=== PATIENT | female | born 1950 | race Caucasian/White ===

== ENCOUNTER → 2016-11-17 | Outpatient (CLI) | payer OTHER, MEDICARE ==
[2016-11-17 12:51] LABS: HEMATOCRIT 37.6 % (37.0-47.0); HEMOGLOBIN 12.5 g/dL (12.0-16.0); MEAN CORPUSCULAR HGB CONC 33.2 g/dL (33-37); MEAN PLATELET VOLUME 8.9 FL (7.4-12.2); RDW COEFFICIENT OF VARIATION 13.4 % (11.5-14.5); RED BLOOD COUNT 4.17 10^6/uL (4.20-5.40); WHITE BLOOD COUNT 4.75 10^3/uL (4.8-10.8)
[2016-11-17 13:14] LABS: BILIRUBIN,TOTAL 0.4 mg/dL (0.3-1.2); CALCIUM 9.8 mg/dL (8.7-10.7); LDL CHOLESTEROL,CALCULATED 157.2 mg/dL; POTASSIUM 4.1 meq/L (3.8-5.2); TOTAL PROTEIN 8.8 g/dL (6.1-8.0)
[2016-11-17 14:12] LABS: FREE T4 (FREE THYROXINE) 0.81 ng/dL (0.93-1.71)
== END ==
LOC: MOB LAB 11:38
PROVIDERS: ATTEND Student in an Organized Health Care Education/Training Program
DX: Z13.220 Encounter for screening for lipoid disorders (principal); Z86.39 Personal history of other endocrine, nutritional and metabolic disease; Z80.0 Family history of malignant neoplasm of digestive organs; Z12.11 Encounter for screening for malignant neoplasm of colon
CPT/HCPCS: 36415; 80053; 80061; 84439; 84443; 85027; G0439

== ENCOUNTER → 2016-11-24 | Outpatient (CLI) | payer OTHER, MEDICARE ==
--- NOTE | 2016-11-25 09:13 | DI ---
CT BONE DENSITOMETRY OF THE SPINE AND HIP, 11/24/2016 3:11 PM : Clinical History: Asymptomatic post menopausal patient. Screening. Previous Exam: None at this facility. 3D Quantitative CT (QCT) Bone Mineral Densitometry: The [place] scans are normal. Low dose scans are sampled through the midbodies of L1 and L2. Average bone mineral density (BMD) is 111.2 mg/mL corresponding to a volumetric T-score of -2.2, and Z-score of 0.7. The [employer]'s (ACR) volumetric QCT BMD conversion table categorizes thi s patient as having osteopenia of the lumbar spine. CT X-Ray Absorptiometry (CTXA) Bone Mineral Densitometry of the Left Hip: Total hip BMD: 915 mg/cm2 T-score: -0.1 Z-score: 1.1 Femoral neck BMD: 717 mg/cm2 T-score: -0.7 Z-score: 0.7 Note: T-scores of the spine and hip are discordant approximately 40% of the time. Changes in actual Q CT or CTXA/DEXA measurements are more reliable in assessment of change in BMD status rather than coleman ges in T-scores. READIN. The QCT lumbar spine BMD value by ACR's 3D volumetric to 2D areal conversion categorizes this pat ient as having osteopenia of the lumbar spine. The QCT spine T-score is -2.2, also indicating osteope tracy of the lumbar spine. 2. The CTXA total hip and femoral neck BMD T-scores are -0.1 and -0.7, respectively. The left total hip T-score indicates this patient has normal bone mineral density of the total hip.
== END ==
LOC: CT 15:02
PROVIDERS: ATTEND Student in an Organized Health Care Education/Training Program
DX: Z78.0 Asymptomatic menopausal state (principal); Z13.820 Encounter for screening for osteoporosis
CPT/HCPCS: 77078

== ENCOUNTER → 2017-05-10 | Outpatient (CLI) | payer OTHER, MEDICARE ==
[2017-05-10 13:42] LABS: FREE T4 (FREE THYROXINE) 0.97 ng/dL (0.93-1.71)
== END ==
LOC: LAB 11:57
PROVIDERS: ATTEND Student in an Organized Health Care Education/Training Program
DX: E03.9 Hypothyroidism, unspecified (principal)
CPT/HCPCS: 36415; 84439; 84443